=== PATIENT | female | born 1930 | race Caucasian/White ===

== ENCOUNTER → 2016-07-27 | Outpatient (CLI) | payer OTHER ==
[~2016-07-27] MED LIST: AL-MAG HYDROX-S30 M1 PO; AMIODARONE PO; ASPIRIN81 M2 PO; ASPIRIN81 MG PO; BRILINTA90 MG PO; CARAFATE PO; CARDIZEM SR PO; CARVEDILOL3.125 MG PO; CATAPRES-TTS-10.1 MG PO; CELEBREX PO; CENTRUM PO; CENTRUM SILVER PO; CLONIDINE HCL0.1 MG PO; DILTIAZEM 24HR240 M1 PO; DILTIAZEM 24HR240 MG PO; GLUCOPHAGE500 MG PO; LIPITOR PO; LOPRESSOR PO; LORTAB 5/500 TA1 TA2 PO; METFORMIN PO; METOPROLOL SUCC50 MG PO; MOBIC15 MG PO; MULTI VITAMIN1 EACH PO; NAPROSYN250 M1 PO; NEURONTIN100 MG PO; NEXIUM PO; NITROSTAT0.4 MG SL; OMEPRAZOLE20 M1 PO; OMEPRAZOLE20 M2 PO; OYSTER SHELL C500 MG PO; PANTOPRAZOLE SO40 MG PO; PRAVASTATIN SOD40 MG PO; PREDNISONE PO; PREVACID PO; PRILOSEC20 M1 PO; PRILOSEC20 MG PO; PRINIVIL10 MG PO; PROTONIX PO; SIMVASTATIN40 MG PO; SUCRALFATE1 G/10 ML PO; TERBINAFINE (L250 MG PO; VITAMIN D2000 UNIT PO; VITAMIN D50000 UNIT PO; VOLTAREN75 MG PO; ZOCOR5 MG PO
--- NOTE | ~2016-07-27 | US37 ---
[facility] A Service of [facility] RADIOLOGY TEXT RESULTS PATIENT: BROOKLYN ARREOLA LOCATION: [facility] : 30 UNIT #: [id number] AGE: [address]: Isamar Mohan SEX: F ORDER DR: [id number] [facility] [address] [place], [place] [address] [id number] O MR#: [id number] Acc #: [id number] NAME: BROOKLYN ARREOLA. : 1930 SEX: F STUDY DATE/TIME: 07/27/2016 10:44 UNIT: [facility] ROOM: STUDY DESCRIPTION: US Carotid W/Doppler Bilateral Attending Physician: Isamar Mohan A.P.R.N. Referring Physician: Isamar Mohan A.P.R.N. Ordering Physician: Isamar Mohan A.P.R.N. Primary Care Physician: Gama Lopes M.D. MEDICAL IMAGING REPORT This report is preliminary unless electronic signature is present EXAM Carotid Doppler INDICATION Carotid stenosis. Patient underwent a prior carotid endarterectomy on the right in December 2015. TECHNIQUE Bilateral carotid ultrasound examination was performed using gill-scale, spectral Doppler and color flow Doppler imaging. Carotid flow was assessed using standards based on NASCET methodology. FINDINGS Ultrasound examination of the carotid arteries shows some mild plaque within the right carotid artery at the bifurcation, with more significant plaque identified within the left internal carotid artery. Doppler evaluation shows elevated peak systolic flow velocity in the left internal carotid artery measuring up to 211 cm/sec, indicating a flow-limiting stenosis of 50% to 69%. There is no evidence of significant carotid stenosis on the right and internal carotid artery peak systolic flow velocity on the right measures up to 116 cm/sec. Both vertebral arteries are patent. Breaker Oiler denotes that they both show antegrade flow, although this is not well seen on the submitted images. IMPRESSION 1. 50% to 69% stenosis at the left internal carotid artery. 2. Mild right carotid disease but no evidence of clinically significant stenosis. 3. Both vertebral arteries are patent and reportedly with antegrade flow, although this is difficult to assess with the submitted images. Dictated by... [facility] A Service of [facility] / [facility] RADIOLOGY TEXT RESULTS PATIENT: BROOKLYN ARREOLA LOCATION: [facility] : 30 UNIT #: [id number] AGE: [address]: Isamar Mohan SEX: F ORDER DR: Yanique Lucero M.D. THIS IS AN ELECTRONICALLY VERIFIED REPORT Yanique Lucero M.D. at 07/30/2016 3:40 PM AFF/psc TD: 07/28/2016 20:22 JOB #: [id number] MEDICAL IMAGING REPORT Page 1 of 1 COPY
== END | disposition home or self-care (01) ==
LOC: CNIV 10:09
DX: I65.23 Occlusion and stenosis of bilateral carotid arteries (principal)
CPT/HCPCS: 93880

== ENCOUNTER → 2016-07-31 | Outpatient (CLI) | payer OTHER ==
--- NOTE | ~2016-07-31 | MY29 ---
[facility] A Service of [facility] RADIOLOGY TEXT RESULTS PATIENT: BROOKLYN ARREOLA LOCATION: [facility] : 30 UNIT #: [id number] AGE: [address]: Gama Lopes MD SEX: F ORDER DR: [id number] [facility] [address] [place], [place] [address] [id number] O MR#: [id number] Acc #: [id number] NAME: BROOKLYN ARREOLA : 1930 SEX: F STUDY DATE/TIME: 07/31/2016 8:58 UNIT: [facility] ROOM: STUDY DESCRIPTION: MY KIRBY SCREENING W/ CAD BILAT Attending Physician: Gama Lopes M.D. Ordering Physician: Gama Lopes M.D. Primary Care Physician: Gama Lopes M.D. MEDICAL IMAGING REPORT This report is preliminary unless electronic signature is present EXAM Digital screening mammogram, 07/31/2016 HISTORY 85-year-old woman no risk elevation. Annual screening. COMPARISON Mammograms date to 08/04/2005 with most recent comparison 05/20/2015. FINDINGS Digital imaging of each breast was completed utilizing a two-view examination of each breast in craniocaudal and mediolateral-oblique projections. Review and interpretation of digital mammograms include a second review in conjunction with FDA-approved CAD device. There is a normal parenchymal presentation bilaterally consistent with the patient's age. There are no breast masses imaged and no parenchymal asymmetry is visualized. There are no suspicious microcalcifications and I see no focal architectural disturbance. IMPRESSION Negative screening digital mammogram. One-year followup recommended. Patients over the age of 40 are entered into a reminder system with target due date for the next mammogram. A result letter will also be sent to the patient. BIRADS: 1 Negative ADDENDUM Annual screening is optional at this age. Dictated by... Avelino Benavides M.D. [facility] A Service of [facility] RADIOLOGY TEXT RESULTS PATIENT: BROOKLYN ARREOLA LOCATION: [facility] : 30 UNIT #: [id number] AGE: [address]: Gama Lopes MD SEX: F ORDER DR: THIS IS AN ELECTRONICALLY VERIFIED REPORT Avelino Benavides M.D. at 07/31/2016 11:15 AM Bebe TD: 07/31/2016 10:08 JOB #: [id number] MEDICAL IMAGING REPORT Page 1 of 1 COPY
== END | disposition home or self-care (01) ==
LOC: CWCC 08:26
DX: Z12.31 Encounter for screening mammogram for malignant neoplasm of breast (principal)
CPT/HCPCS: G0202